=== PATIENT | male | born 1995 ===

== ENCOUNTER 2020-04-03 01:35 | Emergency (ER) | payer SELFPAY ==
[~2020-04-03] VITALS: Ht 167.6 cm; Wt 68.3 kg
--- NOTE | 2020-04-03 01:43 | NUR ---
Pt arrived on unit, assumed care.
[2020-04-03] MEDS ORDERED: AZITHROMYCIN 500 MG TABLET PO ONE (02:00)
[2020-04-03] MEDS ORDERED: CEFTRIAXONE 250 MG IM ONE (02:00)
--- NOTE | 2020-04-03 02:04 | NUR ---
UA collected and sent to lab.
[2020-04-03 02:13] LABS: MICROSCOPIC NOT IND
[2020-04-03] MEDS ORDERED: CEFTRIAXONE 250 MG ONE (02:13)
[2020-04-03] MEDS ORDERED: AZITHROMYCIN 500 MG TABLET ONE (02:13)
[2020-04-03 02:22] VITALS: BP 116/74
== END 2020-04-03 02:43 | disposition home or self-care (01) ==
LOC: ED 02:00
DX: A56.8 Sexually transmitted chlamydial infection of other sites (principal); A54.9 Gonococcal infection, unspecified
CPT/HCPCS: 81003; 87491; 87591; 96372; 99283; J0696